=== PATIENT | male | born 1970 | race Asian ===

== ENCOUNTER 2019-12-03 03:34 | Emergency (ER) | payer OTHER ==
[~2019-12-03] VITALS: Ht 162.6 cm; Wt 61.2 kg
[2019-12-03 03:34] VITALS: BP 132/96
[2019-12-03] MEDS ORDERED: EMTRICITABINE/TENOFOVIR 1 TAB PO ONE (04:30)
[2019-12-03] MEDS ORDERED: RALTEGRAVIR POTASSIUM 400 MG TABLET PO ONE ×2 (04:30→05:14)
[2019-12-03] MEDS ORDERED: EMTRICITABINE 200 MG CAPSULE PO ONE (05:13)
[2019-12-03] MEDS ORDERED: TENOFOVIR DISOPROXIL FUMARATE 300 MG TABLET PO ONE (05:14)
[2019-12-05 07:07] LABS: HIV SCRN 4G wRFX Non Reactive (Non Reactive)
== END 2019-12-03 05:30 | disposition home or self-care (01) ==
LOC: ER 03:42
DX: S61.230A Puncture wound without foreign body of right index finger without damage to nail, initial encounter (principal); I10 Essential (primary) hypertension; W46.0XXA Contact with hypodermic needle, initial encounter; Y93.89 Activity, other specified; Y92.89 Other specified places as the place of occurrence of the external cause; Y99.0 Civilian activity done for income or pay
CPT/HCPCS: 36415; 86706; 86803; 87340

== ENCOUNTER 2020-07-07 10:07 | Emergency (ER) | payer OTHER ==
[~2020-07-07] VITALS: Ht 162.6 cm; Wt 63.5 kg
[2020-07-07 10:09] VITALS: BP 135/81
[2020-07-07] MEDS ORDERED: EMTRICITABINE/TENOFOVIR 1 TAB PO ONE (10:30)
[2020-07-07] MEDS ORDERED: RALTEGRAVIR POTASSIUM 400 MG TABLET PO ONE (10:30)
[2020-07-07] MEDS ORDERED: EMTRICITABINE 200 MG CAPSULE PO ONE (11:00)
[2020-07-07] MEDS ORDERED: TENOFOVIR DISOPROXIL FUMARATE 300 MG TABLET PO ONE (11:00)
[2020-07-09 06:06] LABS: HIV SCRN 4G wRFX Non Reactive (Non Reactive)
== END 2020-07-07 10:57 | disposition home or self-care (01) ==
LOC: ER 10:09
DX: S69.82XA Other specified injuries of left wrist, hand and finger(s), initial encounter (principal); I10 Essential (primary) hypertension; W46.0XXA Contact with hypodermic needle, initial encounter; Y93.89 Activity, other specified; Y92.89 Other specified places as the place of occurrence of the external cause; Y99.0 Civilian activity done for income or pay
CPT/HCPCS: 36415; 86706; 86803; 87340